=== PATIENT | female | born 1960 | race Caucasian/White ===

== ENCOUNTER 2019-02-20 11:12 | Emergency (ER) | payer OTHER ==
[~2019-02-20] VITALS: Ht 160 cm; Wt 54.0 kg
[2019-02-20] MEDS ORDERED: ALDACTONE100 MG PO (11:16)
[2019-02-20] MEDS ORDERED: ADDERALL 10 MG10 MG PO (11:16)
[2019-02-20] MEDS ORDERED: NORCO 5-325 TA1 EAC1 PO (15:16)
[2019-02-20 15:57] VITALS: BP 130/68
[2019-02-20] MEDS ORDERED: ONDANSETRON HCL4 M2 PO (15:59)
== END 2019-02-20 16:11 | disposition home or self-care (01) ==
LOC: ER 11:12
DX: S01.81XA Laceration without foreign body of other part of head, initial encounter (principal); S01.112A Laceration without foreign body of left eyelid and periocular area, initial encounter; J45.909 Unspecified asthma, uncomplicated; Z88.1 Allergy status to other antibiotic agents; W01.198A Fall on same level from slipping, tripping and stumbling with subsequent striking against other object, initial encounter; Y92.89 Other specified places as the place of occurrence of the external cause; Y93.89 Activity, other specified; Y99.8 Other external cause status

== ENCOUNTER 2019-02-26 19:22 | Emergency (ER) | payer OTHER ==
[~2019-02-26] VITALS: Ht 160 cm; Wt 53.5 kg
[~2019-02-26 19:22] MED LIST: ADDERALL 10 MG10 MG PO; ALDACTONE100 MG PO; NORCO 5-325 TA1 EAC1 PO; ONDANSETRON HCL4 M2 PO
[2019-02-26 21:08] VITALS: BP 126/59
== END 2019-02-26 20:00 | disposition home or self-care (01) ==
LOC: ER 19:22
DX: S01.112D Laceration without foreign body of left eyelid and periocular area, subsequent encounter (principal); S01.81XD Laceration without foreign body of other part of head, subsequent encounter; Z88.1 Allergy status to other antibiotic agents; W17.89XD Other fall from one level to another, subsequent encounter